=== PATIENT | male | born 2000 | race Caucasian/White ===

== ENCOUNTER 2019-05-17 23:03 | Observation (INO) | payer BC, SELFPAY ==
--- NOTE | 2019-05-17 00:21 | DI.CT_ITS ---
EXAM: CT ABDOMEN PELVIS W CLINICAL HISTORY: RLQ pain/tenderness TECHNIQUE: Post IV contrast. Without oral contrast. COMPARISON: CHEST ABD PELVIS WITH CONTRAST from 10/16/2016 FINDINGS: The appendix is abnormally dilated and shows surrounding inflammation, consistent with acute appendi citis. There is no evidence of perforation or abscess. There is a trace amount of fluid in the pelv is. There is no bowel dilatation. The heart size is normal. The lung bases are clear. The liver, gallbladder, spleen, pancreas, kidneys, adrenals and urinary bladder are unremarkable. IMPRESSION: Findings consistent with acute appendicitis
--- NOTE | 2019-05-17 23:11 | ED.GENADUL_ITS ---
Discharge Plan Disposition Patient Disposition: [facility] INPATIENT Condition: Good Discharge Details Chief Complaint: Abd Prob Clinical Impression: Acute appendicitis Primary Care Provider: Horacio Berman ED Provider: Eber Matthew Meds and New Rx's Prescriptions: No Action ibuprofen 600 MG tablet 600 mg PO TID Qty: 30 RF: 0 Medical Decision Making History and exam worrisome for acute appendicitis. Patient made n.p.o. IV established and fluids started. Zofran for nausea but patient declined pain medication. Laboratory studies sent and CT scan of the abdomen pelvis ordered. Laboratory studies unremarkable except for white count being elevated at 15. CT scan shows acute appendicitis with no evidence of perforation or abscess currently. Patient discussed with surgeon, Dr. Guzmán. Patient will be admitted to her service overnight with Zosyn every 6 and plan for or in the morning. Patient does not wish to have narcotics so written for Tylenol and Toradol as needed. Will keep n.p.o. except for ice chips. Continue fluids. Admitted in good condition. HPI General Mode of arrival: ambulatory . Date/Time Provider Initiated Documentation: 05/17/19 23:11 . Limitations to Documentation: no limitations . Information obtained by: patient and RN notes reviewed . HPI Narrative: Patient presents to ED with complaint of worsening abdominal pain for the last 2 days. Initially generalized. Now localized to the right lower quadrant. Nausea but no vomiting. Decreased appetite though did try to eat this evening. Some diarrhea initially but none for the last 36 hours. No difficulty urinating. No back pain. No fever he is aware of. Otherwise healthy with no significant past medical or surgical history. Related Data Home Medications Medication Instructions Recorded Confirmed ibuprofen 600 mg PO TID #30 tab 08/20/12 05/17/19 Previous Rx's Medication Instructions Recorded ibuprofen 600 mg PO TID #30 tab 08/20/12 Allergies Allergy/AdvReac Type Severity Reaction Status Date / Time No Known Allergies Allergy Unverified 05/17/19 23:29 Review of Systems Narrative: 01/18 Review of Systems completed and is negative except as stated above in HPI (Systems reviewed: Const, Eyes, ENT, Resp, CV, GI, , MSK, Skin, Neuro) PFSH Medical History No active medical problems (Acute) Surgical History No significant past surgical history (Acute) Social History Smoking/Tobacco Use Status: Never Alcohol Intake: never Substance use type: does not use Do you feel safe at home: Yes Do you feel safe in your relationship?: Yes Exam Narrative Exam Narrative: Vitals: Afebrile with normal vitals and room air pulse ox. Const: WDWN male in NAD. HEENT: NC/AT. Normal facial exam. Eyes: Normal conjunctiva and sclera. Neck: Supple. Trachea midline. Lungs: Normal respiratory effort. Lungs are clear. Cor: RRR without murmur/gallop. Good radial pulses. GI: Soft and nondistended. Tender with involuntary guarding in the right lower quadrant. No rebound. No Rovsing. Back: No CVAT Neuro: A+O x 3. Normal speech, mentation, gait. Cranial nerves II - XII grossly intact. No gross motor or sensory deficit. Ext: No C/C/E. Skin: Warm and dry without rash.
[2019-05-17 23:12] VITALS: BP 133/64; PULSE 94; RESP 16; TEMP 37.2; O2SAT 98
[2019-05-18] VITALS (19 sets, daily range): BP systolic 109–135; BP diastolic 43–84; PULSE 70–96; RESP 12–20; TEMP 36.5–37.7; O2SAT 94–98
[2019-05-18] MEDS: Ondansetron 4 MG/2 ML VIAL IVP (00:09)
[2019-05-18] MEDS: Lactated Ringers 1,000 ML 1000 ML IV (00:09)
[2019-05-18 00:12] LABS: Abs Immature Grans 0.02 k/cumm (0.0-0.09); Absolute Lymphocyte Count 1.62 k/cumm (1.2-3.4); Absolute Monocyte Count 1.27 k/cumm (0.11-0.7); Basophils % 0.1; HCT 44.5 % (40.0-50.0); HGB 15.5 g/dL (13.5-17.5); Immature Grans % 0.1 %; Lymphocytes % 10.9; Mean Corp. HGB Concentration 34.8 g/dL (32.0-36.0); Mean Corpuscular Hemoglobin 28.6 pg (27.0-33.0); Mean Corpuscular Volume 82.1 fL (80-95); Mean Platelet Volume 11.2 fL (8.0-11.0); Monocytes % 8.6; Neutrophils % 78.3; Platelet Count 233 x1000/uL (130-400); RBC 5.42 m/cumm (4.50-6.00); RBC Distribution Width 12.5 % (11.8-14.1); White Blood Cell Count 14.82 k/cumm (4.4-10.8)
[2019-05-18 00:19] LABS: Absolute Basophil Count 0.01 k/cumm (0.0-0.2)
[2019-05-18] MEDS: Omnipaque 350 MG/ML 100 ML BTL IJ (00:27)
[2019-05-18 00:28] LABS: ALT 17 U/L (16-63); AST 16 U/L (15-37); Albumin 3.9 g/dL (3.4-5.0); Alkaline Phosphatase 70 U/L (46-116); Anion Gap 6.4 mmol/L (3-11); BUN 12 mg/dL (7-18); Bilirubin, Total 0.9 mg/dL (0.2-1.0); CO2 30.6 mmol/L (21.0-32.0); CREATININE 1.13 mg/dL (0.70-1.30); Calcium 8.7 mg/dL (8.5-10.1); Chloride 101 mmol/L (98-107); Glucose 103 mg/dL (74-106); Lipase 114 U/L (73-393); Potassium 3.5 mmol/L (3.5-5.1); Sodium 138 mmol/L (136-145); Total Protein 8.1 g/dL (6.4-8.2)
--- NOTE | 2019-05-18 01:07 | DI.VRAD_ITS ---
PROCEDURE INFORMATION: Exam: CT Abdomen And Pelvis With Contrast Exam date and time: 05/17/2019 12:18 AM Age: 18 years old Clinical indication: Abdominal pain; Localized; Right lower quadrant (rlq); Patient HX: Rlq pain and tenderness TECHNIQUE: Imaging protocol: Computed tomography of the abdomen and pelvis with intravenous contrast. Radiation optimization: All CT scans at this facility use at least one of these dose optimization techniques: automated exposure control; mA and/or kV adjustment per patient size (includes targeted exams where dose is matched to clinical indication); or iterative reconstruction. Contrast material: OMNIPAQUE 350; Contrast volume: 100 ml; Contrast route: IV; COMPARISON: CT CHEST ABD PELVIS WITH CONTRAST 10/16/2016 11:27 AM FINDINGS: Liver: Normal. No mass. Gallbladder and bile ducts: Normal. No calcified stones. No ductal dilation. Pancreas: Normal. No ductal dilation. Spleen: Normal. No splenomegaly. Adrenals: Normal. No mass. Kidneys and ureters: Normal. No hydronephrosis. Stomach and bowel: Unremarkable. No obstruction. No mucosal thickening. Appendix: A fluid-filled mildly edematous appendix is seen with surrounding inflammation consistent with early acute appendicitis. No evidence of abscess. No perforation evident. Maximal diameter 10 mm. Intraperitoneal space: Unremarkable. No free air. No significant fluid collection. Vasculature: Unremarkable. No abdominal aortic aneurysm. Lymph nodes: Minor right lower quadrant mesenteric lymph nodes subcentimeter in size. Bladder: Unremarkable as visualized. Reproductive: Unremarkable as visualized. Bones/joints: Unremarkable. No acute fracture. Soft tissues: Unremarkable. IMPRESSION: 1. Edematous and fluid-filled appendix with surrounding inflammation consistent with acute appendicitis. No abscess. 2. Critical finding called to ER provider. Dictated and Authenticated by: Huang Pressley MD. Ordering:FADIA Velázquez MD
[2019-05-18] MEDS: ACETAMINOPHEN 1,000 MG/100 ML BTL 400 MG IVPB (01:28)
[2019-05-18] MEDS: Lactated Ringers 1,000 ML 150 ML IV ×4 (01:38→11:13)
[2019-05-18 02:04] LABS: Bilirubin Small (Negative); Blood Negative (Negative); Clarity Clear (Clear); Glucose Negative (Negative); Ketones Trace mg/dL (Negative); Leukocyte Esterase Negative (Negative); Nitrite Negative (Negative); Specific Gravity 1.015 (1.005-1.025); pH 6.5 (5-8)
[2019-05-18 02:13] LABS: WBC 0-2 HPF (0-5)
[2019-05-18 02:14] LABS: Bacteria Few HPF (Negative); C & S Indicated? Yes; Mucus Heavy (Negative)
[2019-05-18] MEDS: Normal Saline Flush 10 ML SYR IVP ×2 (02:16→11:48)
[2019-05-18] MEDS: PIPERACILLIN/TAZO 3.375 GM in Normal Saline 50 ML IVPB ×2 (02:16→08:40)
--- NOTE | 2019-05-18 07:47 | W.PM.HP.N ---
Date of service: 05/18/19 Time of Service: 07:47 Assessment and Plan Assessment and plan (1) Acute appendicitis: Status: Acute Assessment and plan: Given patient's elevated WBC count and (+) CT scan remarkable for acute appendicitis will proceed with laproscopic appendectomy. He has never had surgery. He denies and dyspnea or dyspnea with exertion. Discussed the procedure with both the patient and his mother. Questioned were answered to patient's satisfaction. He will continue NPO. He has Tylenol and Toradol ordered for pain control until that time. P// Laproscopic Appendectomy with Dr. Bowie. History of Present Illness History of Present Illness Chief Complaint: Acute Appendicitis Narrative: 18 y/o male presented to the ER with complaints of abdominal pain which had progressively worsening since Sat. (05/15). He reports he had a few episodes of diarrhea. Denies any nausea or vomiting. In the ER he was found to have an elevated WBC count of 14.82. He was afebrile. CT scan showed acute appendicitis. He was admitted overnight on IV fluids and Zosyn. He has been NPO since admission. He reports that his pain has been well controlled over night with tylenol and toradol. Review of Systems Constitutional Constitutional: Reports as per [facility] Medical History No active medical problems (Acute) Surgical History No significant past surgical history (Acute) Social History Smoking/Tobacco Use Status: Never Alcohol Intake: never Substance use type: does not use Do you feel safe at home: Yes Do you feel safe in your relationship?: Yes Meds Home Medications and Allergies Home Medications Medication Instructions Recorded Confirmed Type ibuprofen 600 mg PO TID #30 tab 08/20/12 05/17/19 Rx Allergies Allergy/AdvReac Type Severity Reaction Status Date / Time No Known Allergies Allergy Unverified 05/17/19 23:29 Exam Const General: cooperative and comfortable Orientation: alert and oriented x3 Resp Effort & Inspection: normal respiratory effort, no audible wheezes and no cough GI Inspection: normal to inspection and non-distended Results Labs Result diagrams: 05/18/19 00:04 05/17/19 00:04 Labs: Laboratory Results - last 24 hr 05/17/19 05/18/19 05/18/19 00:04 00:04 01:45 WBC 14.82 H RBC 5.42 Hgb 15.5 Hct 44.5 MCV 82.1 MCH 28.6 MCHC 34.8 RDW 12.5 Plt Count 233 MPV 11.2 H Immature Gran % 0.1 Neutrophils % 78.3 Lymphocytes % 10.9 Monocytes % 8.6 Eosinophils % 2.0 Basophils % 0.1 Absolute Neutrophils 11.60 H Absolute Lymphocytes 1.62 Absolute Monocytes 1.27 H Absolute Eosinophils 0.30 Absolute Basophils 0.01 Sodium 138 Potassium 3.5 Chloride 101 Carbon Dioxide 30.6 Anion Gap 6.4 BUN 12 Creatinine 1.13 Estimated GFR/1.73 m2 >= 60.00 Glucose 103 Calcium 8.7 Total Bilirubin 0.9 AST 16 ALT 17 Alkaline Phosphatase 70 Total Protein 8.1 Albumin 3.9 Lipase 114 Urine Color Yellow Urine Clarity Clear Urine pH 6.5 Ur Specific [place] 1.015 Urine Protein Trace H Urine Ketones Trace H Urine Blood Negative Urine Nitrite Negative Urine Bilirubin Small H Urine Urobilinogen 2.0 H Ur Leukocyte Esterase Negative Urine RBC Not Applicable Urine WBC 0-2 Ur Epithelial Cells Not Applicable Urine Crystals Not Applicable Urine Bacteria Few Urine Mucus Heavy Ur Culture Indicated? Yes Urine Glucose Negative Last Vital Signs Temp 37.2 C 05/18/19 03:34 Pulse 80 05/18/19 03:34 Resp 19 05/18/19 03:34 BP 118/65 05/18/19 03:34 Pulse Ox 97 05/18/19 03:34
--- NOTE | 2019-05-18 11:00 | APP_PTH ---
PATIENT: Octavio Meyers LOC: [id number]#:[id number] AGE/SX: 18/M ROOM: RE05/18/[address]: Cleopatra Bowie MD : 2000 BED: A DIS: 05/18/2019 SPEC #: [id number] RECD: 05/18/19 11:42 STATUS: MICKEY REQ #: [id number] MAHOGANY: 05/18/19 11:[address]: Cleopatra Bowie DEPT: Surgical Specimen RECD BY: Destinee Posey ENTERED: 05/18/19 11:42 SP TYPE: Appendix OTHR DR: Horacio Berman Tissues: 1 - APPENDIX NOT INCIDENTAL Procedures: GROSS AND MICRO LEVEL 3 Comments: [id number]
[2019-05-18] MEDS: Bupivacaine 0.5% Pres-Free 30 ML VIAL (11:06)
[2019-05-18] MEDS: fentaNYL 100 MCG/2 ML VIAL IVP ×3 (11:46→12:33)
--- NOTE | 2019-05-18 12:03 | W.PM.DS.N ---
Date of service: 05/18/19 Time of Service: 12:03 DS: Diagnosis Discharge Diagnosis (1) Acute appendicitis: Status: Acute Discharge Plan Disposition Patient Disposition: HOME Condition: Good Discharge Details Chief Complaint: Abd Prob Clinical Impression: Acute appendicitis Reason For Visit: APPENDICITIS Admit Date/Time: 05/18/19 00:16 Admit Provider: Cleopatra Bowie Attending Provider: Cleopatra Bowie Primary Care Provider: Horacio Berman ED Provider: Eber Matthew [facility] Course Hospital Course: The patient had a laparoscopic appendectomy for suppurative appendicitis. There was no perforation. He tolerated the procedure well and was discharged later the same day. Home Meds and New Rx's Prescriptions: Continued ibuprofen 600 MG tablet 600 mg PO TID Qty: 30 RF: 0 Discharge Instructions Additional Instructions: The top bandage can be removed tomorrow. The steri strips will usually stick for about a week. When the edges start to curl up, they can be removed. It is okay to shower tomorrow, the water can run over the steri strips Do not swim or soak in a tub for two weeks Call for any concerns including fever, increased pain, vomiting, incision redness or drainage. Do not lift more than 15 pounds for two weeks. Walking and stairs are fine. Plan to be off work until at least 05/24. Okay to return to school when able. Do not drive if on narcotic pain meds or if limited by pain. May use Tylenol alternating with ibuprofen for pain control. Ice is also an option. The maximum dose for Tylenol is 4000 mg/day. May use ibuprofen 800 mg every 8 hours as needed. If concerned about constipation, you may use a stool softener or milk of magnesia. Referrals: Cleopatra Bowie MD [ [facility] STAFF PHYSICIAN] - (Return for a postop visit in 7-10 days) Activity:: Do not lift more than 15# for two weeks, then gradually increase Equipment/Supplies:: No Equipment Needed Diet:: As Tolerated DS: Summary Status at Discharge Functional status at discharge: independent ambulation Overall status at discharge: patient is progressing back to baseline Mental Status: mental status grossly normal Speech and Movement: speech and movement normal Mood: congruent mood Affect: normal affect Exam Psych Mental Status: mental status grossly normal Speech and Movement: speech and movement normal Mood: congruent mood Affect: normal affect DS: Data Vitals/I&O Vitals and I&O: Vital Signs Temperature 98.4 F 05/18/19 12:00 Temperature Source Temporal Artery Scan 05/18/19 09:34 Pulse 89 05/18/19 12:00 Pulse Rhythm Regular 05/18/19 07:51 Respiratory Rate 16 05/18/19 12:00 Respiratory Effort Non-Labored 05/18/19 07:51 Respiratory Depth Normal 05/18/19 07:51 Respiratory Pattern Normal 05/18/19 07:51 Blood Pressure 126/67 05/18/19 12:00 Blood Pressure Mean 78 05/18/19 09:34 Blood Pressure Position Supine 05/18/19 09:34 Pulse Oximetry 95 05/18/19 12:00 Respiratory End-tidal CO2 39 05/18/19 12:00 Oxygen Delivery Method Room Air 05/18/19 12:00 Oxygen Flow Rate 0 05/18/19 09:34 Pain Level 5 05/18/19 12:00 Comment 05/18/19 09:34 Intake & Output 05/17/19 05/18/19 05/18/19 23:59 11:59 23:59 Intake Total 3265 / 3265 Balance 3265 / 3265 Weight 245 lb 245 lb Intake: IV 3265 / 3265 Other: Urine Appearance Clear Emesis Description None None Data Completed and Pending Labs on day of discharge: Labs from last 24 hours 05/18/19 05/18/19 05/17/19 01:45 00:04 00:04 WBC 14.82 H RBC 5.42 Hgb 15.5 Hct 44.5 MCV 82.1 MCH 28.6 MCHC 34.8 RDW 12.5 Plt Count 233 MPV 11.2 H Immature Gran % 0.1 Neutrophils % 78.3 Lymphocytes % 10.9 Monocytes % 8.6 Eosinophils % 2.0 Basophils % 0.1 Absolute Neutrophils 11.60 H Absolute Lymphocytes 1.62 Absolute Monocytes 1.27 H Absolute Eosinophils 0.30 Absolute Basophils 0.01 Sodium 138 Potassium 3.5 Chloride 101 Carbon Dioxide 30.6 Anion Gap 6.4 BUN 12 Creatinine 1.13 Estimated GFR/1.73 m2 >= 60.00 Glucose 103 Calcium 8.7 Total Bilirubin 0.9 AST 16 ALT 17 Alkaline Phosphatase 70 Total Protein 8.1 Albumin 3.9 Lipase 114 Urine Color Yellow Urine Clarity Clear Urine pH 6.5 Ur Specific [place] 1.015 Urine Protein Trace H Urine Ketones Trace H Urine Blood Negative Urine Nitrite Negative Urine Bilirubin Small H Urine Urobilinogen 2.0 H Ur Leukocyte Esterase Negative Urine RBC Not Applicable Urine WBC 0-2 Ur Epithelial Cells Not Applicable Urine Crystals Not Applicable Urine Bacteria Few Urine Mucus Heavy Ur Culture Indicated? Yes Urine Glucose Negative 05/18/19 01:45 Urine - Reflex from Urine Culture - Pending Preliminary micro results at discharge 05/18/19 01:45 Urine Culture - Pending Urine - Reflex from [facility] Medical History (Updated 05/18/19 @ 01:21 by Eber Matthew MD) No active medical problems (Acute) Surgical History (Updated 05/18/19 @ 12:04 by Cleopatra Bowie MD) S/P laparoscopic appendectomy (Acute) Family History (Updated 05/18/19 @ 12:04 by Cleopatra Bowie MD) Father Colon cancer Social History Smoking/Tobacco Use Status: Never Alcohol Intake: never Substance use type: does not use Do you feel safe at home: Yes Do you feel safe in your relationship?: Yes
[2019-05-18] MEDS: Lactated Ringers 1,000 ML 100 ML IV (13:13)
--- NOTE | 2019-05-18 13:14 | NUR.NOTE ---
Nursing Note: Pt drowsy. easily arousable. VSS, see worklist. 3 trochar sites on abd, gauze and tegaderm c/d/i. Pt requesting water. will continue to monitor.
--- NOTE | 2019-05-18 15:49 | ROE_ITS ---
DATE OF PROCEDURE: May 18, 2019 PREOPERATIVE DIAGNOSIS: Acute appendicitis. POSTOPERATIVE DIAGNOSIS: Acute suppurative appendicitis. PROCEDURE: Laparoscopic appendectomy. SURGEON: Cleopatra Bowie M.D. [employer]: Marin Colin ANESTHESIA: Local and General. INDICATIONS: This is a 18-year-old who began feeling poorly three days prior to admission. He prese nted to the Emergency Department with right lower quadrant pain. His white blood cell count was elev ated and a CT scan was consistent with acute appendicitis. PROCEDURE: The patient was placed supine on the operating table and under a general anesthetic was p repped and draped sterilely. A small infraumbilical incision was made after injecting local anesthet ic. The peritoneum was entered bluntly with a finger. #0 Vicryl sutures were placed on either side of the fascia and the Sav port was held in place with these. A C02 pneumoperitoneum was begun. 5 mm ports were placed in the suprapubic and right lower quadrant locations after injecting local ane sthetic under direct visualization. The appendix was tucked behind the distal ileum. The small fat pad on the ileum near the cecum was inflamed. I needed to utilize this to retract the small bowel me dially so I could visualize the appendix. This was curled up and densely adherent to the pelvic brim . There was no evidence of perforation. The cecum was also fairly peritonealized. I used a LigaSur e to mobilize the cecum and then carefully mobilize the appendix, primarily with gentle blunt dissect ion. It was inflamed along the majority of its length but not the base. The laparoscopic stapler wa s used to separate the appendix from the base of the cecum with a bowel load. I then had to further mobilize the appendix medially so I could pass the vascular staple load across the mesoappendix. The appendix was removed through the umbilical incision in an EndoCatch bag. Inspection of the operativ e site revealed no bleeding. The ports were removed under direct visualization without evidence of p ort site bleed and the C02 released. The #0 Vicryl sutures were tied together at the fascia with goo d result, and the skin at all port sites closed with a #4-0 Monocryl subcuticular stitch. He tolera sherin the procedure well and was stable to recovery. cc: Marin Arevalo
== END 2019-05-18 17:54 | disposition home or self-care (01) ==
LOC: ER 05-18 01:21 → MS 05-18 07:28
PROVIDERS: Admitting Provider Surgery; Emergency Provider Emergency Medicine; PCP Physician Assistant Medical; Visit Provider Surgery
PROC: 0DTJ4ZZ Resection of Appendix, Percutaneous Endoscopic Approach (ICD-10-PCS; CPT 44970; principal; 2019-05-18 09:00)
DX: K35.890 Other acute appendicitis without perforation or gangrene (principal); Z23 Encounter for immunization
CPT/HCPCS: 44970; 36415; 80053; 83690; 96361; 96365; 96375; 99223; 99238; 99285; 74177; 81003; 81015; 85025; 87086; 88304; 99284; G0378; J0131; J1100; J1885; J2001; J2250; J2405; J2543; J2704; J3010; J3490

== ENCOUNTER 2020-02-16 10:28 | Outpatient (CLI) | payer BC, SELFPAY ==
[2020-02-20 12:38] LABS: Patient Race White; SARS-CoV-2 RNA Undetected (Undetected); SARS-CoV-2 Specimen Source Nasal
== END 2020-02-16 10:48 ==
PROVIDERS: PCP Physician Assistant Medical; Visit Provider Physician Assistant Medical
DX: Z11.59 Encounter for screening for other viral diseases (principal)
CPT/HCPCS: U0003

== ENCOUNTER 2021-11-13 20:33 | Outpatient (REF) | payer SELFPAY ==
[2021-11-15 12:05] LABS: COVID-19 RT-PCR UVMMC Result Positive (Negative)
== END 2021-11-13 20:34 | disposition home or self-care (01) ==
LOC: NCHCN 20:33
PROVIDERS: PCP Physician Assistant Medical; Visit Provider Physician Assistant Medical
DX: Z20.822 Contact with and (suspected) exposure to COVID-19 (principal)
CPT/HCPCS: U0003

== ENCOUNTER 2023-07-04 18:43 | Outpatient (REF) | payer OTHER, SELFPAY ==
[2023-07-04 19:21] LABS: Calculated LDL 83 mg/dL (<100); Cholesterol 150 mg/dL (<200); HDL Cholesterol 54 mg/dL (40-60); Triglyceride 67 mg/dL (<150)
[2023-07-04 19:22] LABS: Hemoglobin A1C 5.5 % (<5.7)
== END 2023-07-04 18:44 | disposition home or self-care (01) ==
LOC: NCHCN 18:43
PROVIDERS: PCP Physician Assistant Medical; Visit Provider Physician Assistant Medical
DX: Z00.00 Encounter for general adult medical examination without abnormal findings (principal); Z13.220 Encounter for screening for lipoid disorders; Z13.1 Encounter for screening for diabetes mellitus
CPT/HCPCS: 80061; 83036